=== PATIENT | female | born 1965 | race Caucasian/White ===

== ENCOUNTER 2022-11-17 17:11 | Emergency (ER) | payer MEDICAID ==
[~2022-11-17] VITALS: Ht 165.1 cm; Wt 100.7 kg
[2022-11-17 17:23] VITALS: BP_SYST 124; PULSE 119; RESP 18; TEMP 98.3; O2SAT 95
[2022-11-17] MEDS ORDERED: LIDOCAINE 1% 10 MG/ML, 20 ML MDV INJ ONE (18:30)
[2022-11-17] MEDS ORDERED: KETOROLAC TROMETHAMINE 60 MG/2 ML VIAL IM ONE (19:30)
[2022-11-17] MEDS ORDERED: ceFAZolin SODIUM 2 GM VIAL IM ONE (19:30)
[2022-11-17] MEDS ORDERED: ceFAZolin SODIUM 1 GM VIAL ONE (19:50)
[2022-11-17] MEDS ORDERED: CEPH-548 PO (19:57)
[2022-11-17] MEDS ORDERED: NAPR-1172 PO (19:57)
[2022-11-17 20:14] VITALS: BP_SYST 134; PULSE 84; RESP 18; TEMP 98.3; O2SAT 97
== END 2022-11-17 20:14 | disposition home or self-care (01) ==
LOC: SED 17:11
DX: L02.31 Cutaneous abscess of buttock (principal); E11.9 Type 2 diabetes mellitus without complications; I10 Essential (primary) hypertension; Z79.899 Other long term (current) drug therapy
CPT/HCPCS: 99284; 10060; 96372; J0690; J1885; J2001

== ENCOUNTER 2022-11-19 15:29 | Emergency (ER) | payer MEDICAID ==
[~2022-11-19] VITALS: Ht 172.7 cm; Wt 70.8 kg
[~2022-11-19 15:29] MED LIST: CEPH-548 PO; NAPR-1172 PO
[2022-11-19 15:34] VITALS: BP_SYST 122; PULSE 103; RESP 20; TEMP 98; O2SAT 98
[2022-11-19 17:26] VITALS: BP_SYST 122; PULSE 81; RESP 18; TEMP 98; O2SAT 98
== END 2022-11-19 17:26 | disposition home or self-care (01) ==
LOC: SED 15:29
DX: L02.31 Cutaneous abscess of buttock (principal); I10 Essential (primary) hypertension; E11.9 Type 2 diabetes mellitus without complications; Z79.899 Other long term (current) drug therapy
CPT/HCPCS: 99281